=== PATIENT | female | born 1950 | race Caucasian/White ===

== ENCOUNTER 2016-04-29 08:15 | Outpatient (CLI) ==
[2016-02-12 14:25] VITALS: BMI 45.4
--- NOTE | 2016-04-29 09:16 | US ---
EXAM: Ultrasound abdomen, right upper quadrant HISTORY: Hepatitis C, cirrhosis of liver FINDINGS: The liver size was normal at 13 cm. The peripheral contour of the liver was somewhat serrated and t he caudate lobe prominent. Slight coarsened echotexture of the liver parenchyma. These findings ca n be consistent with the patient's history of cirrhosis. No intrahepatic biliary dilatation or foca l hepatic lesion identified. The portal vein is patent and hepatopedal. Gallbladder is absent. Common bile duct diameter is mildly dilated at 0.7 cm although likely within normal limits for the postop state. Correlate clinically. Visualized pancreas within normal limit s. No ascites identified. IMPRESSION: 1. Appearance of the liver can be consistent with cirrhosis. No focal hepatic lesions identified w ithin limits of sonography. Portal vein is patent. 2. Post cholecystectomy state with mild common bile duct dilatation. The dilatation is likely with in normal limits for the postop state. Correlate clinically. 3. No ascites identified.]
== END 2016-04-29 08:16 ==
LOC: RAD 08:15
PROVIDERS: ATTEND Nurse Practitioner
DX: K74.69 Other cirrhosis of liver (principal)

== ENCOUNTER 2017-03-09 15:05 | Outpatient (CLI) ==
[2016-02-12 14:25] VITALS: BMI 45.4
--- NOTE | 2017-03-09 15:48 | DI ---
EXAM: PA and lateral views of the chest HISTORY: Cough. COMPARISON: Chest x-ray 05/29/2014 and multiple priors including CT chest 11/11/2010 FINDINGS: The cardiomediastinal silhouette is normal. There is no pneumothorax or pleural effusion. There is no consolidation, nodule or mass. The osseous structures are stable. IMPRESSION: No acute cardiopulmonary process
== END 2017-03-09 15:06 | disposition home or self-care (01) ==
LOC: RAD 15:05
PROVIDERS: ATTEND Family Medicine
DX: R05 Cough (principal)

== ENCOUNTER 2017-12-29 12:18 | Outpatient (CLI) ==
[2016-02-12 14:25] VITALS: BMI 45.4
--- NOTE | 2017-12-29 14:41 | MRI ---
EXAM: MRI brain without IV contrast. DATE: 29 December 2017. HISTORY: Headaches. Pain behind the right eye. TECHNIQUE: Sagittal T1W, axial T2W, axial FLAIR, axial T1W, axial DWI, and coronal T2W GRE sequences of the brain were obtained using 1.2 Zainab magnet. No IV contrast. COMPARISON: CT paranasal sinuses 05/08/2014. FINDINGS: The CSF spaces overlying the superior vertex of the brain are mild to moderately prominent . Lateral ventricles, third ventricle, Sylvian fissures and many cerebral sulci are minimal/mildly e nlarged. Horizontal fissures and a few cerebellar sulci are somewhat large. No midline shift or her niation is apparent. No acute infarct, hemorrhage or neoplasm is identified. Minimal T2W/FLAIR hype rintensity is observed in the white matter abutting each lateral ventricle. A 5 mm T2W/FLAIR bright focus is seen in the right frontal frances radiata on axial image #18. A few other 2-3 mm, T2W/FLAIR bright foci are scattered within the subcortical white matter bilaterally. Proximally 12 separate 2 mm T2W/FLAIR bright foci are present in the fletcher. The hancock - white matter differentiation is normal. The 7th/8th cranial nerve complexes, cerebellopontine angles, and visible cervical spinal cord are n ormal. There is no cerebellar tonsillar ectopia. The pituitary gland is normal in size and signal. Corpus callosum is normal in size and configuration. Right vertebral artery is diminutive in size. Left vertebral artery is dominant Flow voids are present in the major intracranial arteries and in t he dural venous sinuses. No aneurysm, AVM or dural venous sinus thrombosis is apparent. No orbit ab normality is identified. The mastoid air cells are unremarkable. There is no acute sinusitis. Left middle turbinate large jason bullosa is present, with adjacent rightward nasoseptal deviation. No neck mass or lymphadenopathy is detected. Mild / moderate thickening of the inner table of the front al bone appears benign. No calvarial neoplasm or acute fracture is evident. IMPRESSIONS: 1. No acute infarct, hemorrhage, mass or hydrocephalus. 2. Minimal cerebral and mild brainstem leukomalacia - - likely due to small vessel disease. 3. Mild cerebral and minor cerebellar atrophy. 4. Moderate, benign hyperostosis frontalis interna.
--- NOTE | 2017-12-29 14:59 | MRI ---
EXAM: MRI lumbar spine without IV contrast. DATE: 29 December 2017. HISTORY: Acute low back pain. Right SI joint pain. TECHNIQUE: Sagittal and axial T1W and T2W sequences of the lumbar spine along with sagittal IR and c oronal T2W sequences were obtained using 1.2 Zainab magnet. No IV contrast. COMPARISON: PA/lateral chest 03/09/2017. CT abdomen/pelvis 17 March 2016. FINDINGS: There are five jwj-hby-ixtioid lumbar vertebra. Mild rotatory dextroscoliosis of the lowe r thoracic and lumbar spine is present, with the apex of curvature at L1-2. A 1.5 mm anterior sublux ation of L2 relative to L1 is noted. No other subluxation, acute lumbar fracture, osseous malignancy , or pars interarticularis defect is demonstrated. Lumbar vertebrae normal in height. Bone marrow s ignal is overall normal, although there are degenerative endplate changes at several levels. Chronic Schmorl's nodes are visible at T11, T12, L1, L2, L4, and L5. Small/moderate osteophytes are present at several lower thoracic and lumbar vertebra. Marked left-sided L1-2, marked L4-5, and mild L5-S1 disc space narrowing is detected. A vertical T2W/T1W dark band of adjacent T2W/IR hyperintensity and low T1W signal in the right S1 and S2 sacral ala is consistent with fracture. T2W/T1W bright signal in the left sacral ala suggest fatty infiltration. No acute sacroiliitis is detected. Conus medull elma terminates at T12-L1. Visible spinal cord is unremarkable. No retroperitoneal lymphadenopathy, paraspinal mass, or aortic aneurysm is detected. Atherosclerotic plaques are present within the aortic wall. Psoas muscles are normal. Minor/mild bilateral posteri or paraspinal muscle atrophy is seen inferiorly. Visible portions of the liver, adrenal glands, panc reas, and kidneys reveal no definitive abnormality. The spleen appears to measure greater than 15.8 cm in length, without distinct focal mass. Visible portion of the uterus reveals no distinct maligna ncy. No bowel obstruction or neoplasm is demonstrated. Segmental analysis: T11-12: Normal. T12-L1: Minor posterior disc bulge does not cause conus compression, central stenosis, or foraminal stenosis. L1-2: Minor anterolisthesis of L2, minor concentric disc bulge, left paracentral disc protrusion (2. 6 mm AP x 7 mm transverse), cause minor/mild right and moderate left foraminal stenoses. No central canal stenosis. L2-3: Small concentric disc bulge, minor facet arthropathy, and mild ligamentum flavum hypertrophy c ause triangulation of the canal and mild bilateral foraminal stenoses. L3-4: Moderate concentric disc bulge, minor facet arthropathy, and mild ligamentum flavum hypertroph y cause triangulation of the canal, mild right foraminal stenosis, and minor/mild left foraminal sten osis. L4-5: Broad midline to right foraminal spondylotic ridge at the L4 inferior endplate, minor posterio r to right foraminal disc bulge, and mild facet arthropathy cause triangulation of the canal, mild ri ght foraminal stenosis, and minor left foraminal narrowing. Right L4 nerve root appears to contact t he disc bulge near the lateral margin of the foramen. L5-S1: Small concentric disc bulge, small right posterolateral spondylotic ridge at the L5 inferior endplate, and minor facet disease cause mild central canal stenosis, mild right foraminal stenosis, a nd slight left foraminal encroachment. Each L5 nerve root touches disc bulge near the lateral aspect of the foramen. IMPRESSIONS: 1. Lumbar spine mild rotatory dextroscoliosis, mild facet arthropathy, minor L1-2 subluxation, and m ultilevel DDD. 2. Multilevel lumbar foraminal stenoses. Right L4 and both L5 nerve roots contact disc bulges/osteo phytes near the foramen, and may be sources for pain/radiculopathy. Unexpected findin. Nondisplaced stress vs insufficiency fracture in the right S1/S2 sacral ala. 4. Triangulation of canal at L2-3, L3-4, and L4-5. Mild central stenosis at L5-S1. 5. Minor bone marrow fatty infiltration. 6. Splenomegaly similar to February 2016. 7. Marked abdominal aortic atherosclerosis.
== END 2017-12-29 12:19 | disposition home or self-care (01) ==
LOC: RAD 12:18
PROVIDERS: ATTEND Family Medicine
DX: R51 Headache (principal); H57.11 Ocular pain, right eye; M54.5 Low back pain

== ENCOUNTER 2018-01-21 14:36 | Emergency (ER) ==
[2018-01-21 14:42] VITALS: BP 171/92; TEMP 98.5; BMI 39.1
--- NOTE | 2018-01-21 15:07 | ED.PDOC ---
General ED Provider: Dr. JESSICA DE JESUS Chief Complaint: Hip Pain/Injury Stated Complaint: pelvis, low back pain Time Seen by Physician: 15:06 (SEEN AT ALL WITH ekta in the room denied trauma) Mode of Arrival: Wheelchair Information Source: Patient Exam Limitations: No limitations Primary Care Provider: KRISTYN KNOX Nursing and Triage Documentation Reviewed and Agree: Yes Does patient meet sepsis criteria?: No System Inflammatory Response Syndrome: Not Applicable Sepsis Protocol: For patient's 13 years and over: Temp is 96.8 and below OR 101 and greater Pulse >90 BPM Resp >20/minute Acutely Altered Mental Status Are patient's symptoms suggestive of a new infection, such as: -Pneumonia -Skin, Soft Tissue -Endocarditis -UTI -Bone, Joint Infection -Implantable Device -Acute Abdominal Infection -Wound Infection -Meningitis -Blood Stream Catheter Infection -Unknown Musculoskeletal Complaint Exam - Hip/Pelvis Complaint/Exam Location of Pain: Reports: Right, Left, Groin, Pelvis (low back pain ) Mechanism of Injury: Reports: No known trauma Onset/Duration: chronic Symptoms Are: Still present Initial Severity: Mild Current Severity: Mild Location: Reports: Discrete Character: Reports: Aching Aggravating: Reports: Movement Alleviating: Reports: Rest, Position Associated Signs and Symptoms: Denies: Swelling, Redness, Bruising, Fever, Weakness, Dizziness, Syncope, Abdominal pain, Knee pain Related History: Reports: Similar episode Able to Bear Weight: Yes Related Surgical History: Reports: None Pelvis Palpation: Stable Tenderness: Present: Right, Left (hips) Range of Motion Limited In: Absent: Flexion, Extension, Abduction, Adduction, Internal rotation, External rotation Differential Diagnoses: Arthritis, Sprain, Strain, Other (lupus) Review of Systems - Review Of Systems Constitutional: Reports: No symptoms Eyes: Reports: No symptoms Ears, Nose, Mouth, Throat: Reports: No symptoms Respiratory: Reports: No symptoms Cardiac: Reports: No symptoms GI: Reports: No symptoms : Reports: No symptoms Musculoskeletal: Reports: Other (pelvis) Skin: Reports: No symptoms Neurological: Reports: No symptoms Endocrine: Reports: No symptoms Hematologic/Lymphatic: Reports: No symptoms All Other Systems: Reviewed and Negative Past Medical History - Past Medical History Previously Healthy: Yes Endocrine: Reports: DM 2 Cardiovascular: Reports: Hypertension Respiratory: Reports: None Hematological: Reports: None Gastrointestinal: Reports: None Genitourinary: Reports: None Neuro/Psych: Reports: None Musculoskeletal: Reports: None Cancer: Reports: None Last Menstrual Period: none - Surgical History General Surgical History: Reports: None - Family History Family History: Reports: None - Social History Smoking Status: Never smoker Hx Substance Use: No Alcohol Screening: None Physical Exam - Physical Exam Appearance: Well-appearing, No pain distress, Well-nourished Eyes: NORIS, EOMI, Conjunctiva clear ENT: Ears normal, Nose normal, Oropharynx normal Respiratory: Airway patent, Breath sounds clear, Breath sounds equal, Respirations nonlabored Cardiovascular: RRR, Pulses normal, No rub, No murmur GI/: Soft, Nontender, No masses, Bowel sounds normal, No Organomegaly Musculoskeletal: Normal strength, ROM intact, No edema, No calf tenderness Skin: Warm, Dry, Normal color Neurological: Sensation intact, Motor intact, Reflexes intact, Cranial nerves intact, Alert, Oriented Psychiatric: Affect appropriate, Mood appropriate Re-Evaluation - Re-Evaluation Time of Re-Evaluation: 15:30 (corbin present at all times we discussed the ct report and MRI REPORT THROUGH PMD A PHONE CALL TO PMD REVEALED THE PT HAS A SACRAL INSUFFICIENCY FX ) Status: Unchanged Vital Signs Stable: Yes Pain Level: 3/10 Appearance: NAD Lungs: Clear Skin: Warm and Dry Neuro: Alert and Oriented X3 CV: RRR - Re-Evaluation Time of Re-Evaluation: 16:18 Status: Unchanged Vital Signs Stable: Yes Appearance: NAD Skin: Warm and Dry Neuro: Alert and Oriented X3 CV: RRR (d/c instruction given) Physician Notification - Case Discussed Physician Notified: pmd Time of Notification: 16:18 (will follow as out pt ) Critical Care Note - Critical Care Note Total Time (mins): 0 Course - Course Orders, Labs, Meds: Orders Category Date Time Status CT PELVIS W/O CONTRAST Stat RADS 01/21/18 15:19 Completed Vital Signs: Temp Pulse Resp BP Pulse Ox 01/21/18 14:38 98.5 F 101 H 20 171/92 H 95 Departure - Departure Time of Disposition: 16:30 (d/c instruction given with nurse at bedside ) Disposition: HOME SELF-CARE Discharge Problem: Hip pain Instructions: Sacral Fracture (ED) Condition: Good Pt referred to PMD for follow-up: Yes IPMP verified?: No Additional Instructions: Please call your Family Physician as soon as possible to schedule a follow-up appointment. Prescriptions: Hydrocodone/Acetaminophen [Rumely 10-325 Tablet] 1 each PO Q8HR #10 tablet Allergies/Adverse Reactions: All[facility]ies [facility] Adverse Reaction (Verified 01/21/18 14:42) Home Medications: Ambulatory Orders Aspirin [Aspirin EC] 81 mg PO DAILYWM 08/28/15 Furosemide [Lasix] 40 mg PO DAILY PRN 08/28/15 Gabapentin [Neurontin] 100 mg PO BID #50 02/18/16 Escitalopram Oxalate [Lexapro] 10 mg PO DAILY 01/21/18 Hydrocodone Bit/Acetaminophen [Rumely 7.5-325] 1 tab PO PRN PRN 01/21/18 Hydrocodone/Acetaminophen [Rumely 10-325 Tablet] 1 each PO Q8HR #10 tablet Insulin Glargine,Hum.rec.anlog [Lantus] 60 unit SQ BEDTIME 01/21/18 Insulin Lispro [Humalog] See Protocol SQ BEDTIME 01/21/18 Losartan Potassium [Cozaar] 25 mg PO DAILY 01/21/18 Potassium Chloride [K-Dur] 10 meq PO ONCE PRN 01/21/18 Disposition Discussed With: Patient
--- NOTE | 2018-01-21 16:05 | CT ---
EXAM: CT pelvis HISTORY: Left groin pain. TECHNIQUE: CT pelvis without contrast. Multiplanar images provided. FINDINGS: Comparison may be made to 11/30/2013. The urinary bladder and uterus appear normal. The visualized bowel has normal gas pattern. There is no ascites or inflammatory infiltration of the abdominal fat. At least moderate atherosclerotic dis ease is suggested. There is a fatty umbilical hernia with a transverse neck of 1.5 cm which is stable since the previous exam. No other hernias are seen. Peripheral soft tissues appear normal. The bones appear deminera lized. There is a probable insufficiency fracture of the right sacral body. There is a severe degener ative disc and facet disease of the lower spine. No pneumoperitoneum IMPRESSION: 1. No clear etiology for left groin pain. There is an insufficiency fracture of the right sacral jaquelin dy. No other fractures are seen. Severe degenerative changes of the lower spine. 2. Stable small fatty umbilical hernia likely of no current clinical significance. 3. Atherosclerotic disease.
== END 2018-01-21 16:36 | disposition home or self-care (01) ==
LOC: ED 14:36
DX: S32.10XA Unspecified fracture of sacrum, initial encounter for closed fracture (principal)
CPT/HCPCS: 99282

== ENCOUNTER 2018-01-27 09:46 | Outpatient (CLI) ==
--- NOTE | 2018-01-27 15:20 | MRI ---
EXAM: MRI of the pelvis without contrast COMPARISON: CT pelvis 01/21/2018. MRI of the lumbar spine 12/29/2017. HISTORY: Left hip and groin pain with walking. Pubic bone pain. Insufficiency fracture of the righ t sacrum noted on recent CT. TECHNIQUE: Multiplanar noncontrast MR images of the pelvis/bilateral hips were acquired using a 1.2 Zainab magnet. The submitted images are moderately limited by patient motion artifact. FINDINGS: There is intervertebral disc space narrowing with facet hypertrophy throughout the lower l umbar spine as noted on previous MRI of the lumbar spine. There is marked marrow edema throughout th e right sacral ala with vertically oriented insufficiency fracture extending from S1-S3 at that level and with marrow edema. Fracture extending through the midline/vertebral body along the upper portio n of S2 and lower portion of S1. Small focus of linear inversion recovery hyperintense/T1 hypointens e signal within the upper left sacral ala which may represent sequela previous insufficiency fracture and/or intramedullary bone infarct. Marked marrow edema throughout the parasymphyseal portion of th e left pubic bone with nondisplaced/insufficiency fracture involving the medial aspect of the superio r pubic ramus and parasymphyseal pubic bone. Adjacent muscle strain/contusion. Mild to moderate degenerative changes of the hips bilaterally with minimal hip effusions. Mild degen erative spurring pubic symphysis. No evidence of acute osteomyelitis. There is hamstring tendinosis. More severe on the right. Partial-thickness tearing of the hamstring tendons which is more extensive on the right without a full-thickness tear or tendon retraction. Mi nimal left-sided greater trochanteric bursitis. No soft tissue mass identified within the pelvis. No pathologically enlarged intrapelvic lymph nodes . IMPRESSION: 1. Sacral insufficiency fracture which is more extensive on the right side. Insufficiency fracture of the left pubic bone as described. 2. Multifocal degenerative changes. 3. Tendinosis and partial tearing of the hamstring tendons bilaterally, more extensive on the right. No full-thickness tendon tear or tendon retraction. 4. Trace left-sided greater trochanteric bursitis.
== END 2018-01-27 09:47 | disposition home or self-care (01) ==
LOC: RAD 09:46
PROVIDERS: ATTEND Family Medicine
DX: M25.512 Pain in left shoulder (principal); M89.9 Disorder of bone, unspecified

== ENCOUNTER 2018-02-01 09:38 | Outpatient (CLI) ==
--- NOTE | 2018-02-01 10:53 | DEXA ---
EXAM: Bone densitometry. History: Postmenopausal. Findings: Evaluation of the lumbar spine reveals a total bone mineral density of 0.881 grams per centimeter squ ared with T-score of negative 2.5. Evaluation of the left hip reveals a total bone mineral density of 0.733 grams per centimeter squared with T-score of negative 2.2. Evaluation of the right hip reveals a total bone mineral density of 0.708 grams per centimeter square d with T-score of negative 2.4 Impression: 1. Osteoporosis of the lumbar spine. 2. Osteopenia of bilateral hips
== END 2018-02-01 09:39 | disposition home or self-care (01) ==
LOC: RAD 09:38
PROVIDERS: ATTEND Family Medicine
DX: Z78.0 Asymptomatic menopausal state (principal); R93.6 Abnormal findings on diagnostic imaging of limbs; S32.9XXD Fracture of unspecified parts of lumbosacral spine and pelvis, subsequent encounter for fracture with routine healing

== ENCOUNTER 2018-05-06 13:00 | Emergency (ER) ==
[2018-05-06 13:05] VITALS: BP 165/87; TEMP 97.7; BMI 40.4
--- NOTE | 2018-05-06 14:14 | DI ---
EXAM: Two views of the chest. History: Cough. Comparison: Chest radiograph 03/09/2017. Findings: Heart size is within normal limits. Mild infiltrates are seen within the bilateral mid debbie ngs. No appreciable pleural fluid and no pneumothorax. Central bronchial wall thickening. No acute osseous abnormalities. Atherosclerotic vascular calcifications. Impression: 1. Mild infiltrates within the bilateral mid lungs suspicious for pneumonia. 2. Central bronchial wall thickening
[2018-05-06] MEDS ORDERED: HUMULIN R SUBCUT STA (14:43)
[2018-05-06] MEDS ORDERED: ZESTRIL PO STA (14:47)
[2018-05-06] MEDS ORDERED: ROCEPHIN IM STA (15:25)
[2018-05-06] MEDS ORDERED: LIDOCAINE HCL 1% SDV IM STA (15:28)
--- NOTE | 2018-05-06 15:29 | ED.PDOC ---
General ED Provider: Dr. JESSICA DE JESUS Chief Complaint: Weakness Stated Complaint: generalized weakness Time Seen by Physician: 13:00 Mode of Arrival: Walk-In Information Source: Patient Exam Limitations: No limitations Primary Care Provider: KRISTYN KNOX Nursing and Triage Documentation Reviewed and Agree: Yes Does patient meet sepsis criteria?: No System Inflammatory Response Syndrome: Not Applicable Sepsis Protocol: For patient's 13 years and over: Temp is 96.8 and below OR 101 and greater Pulse >90 BPM Resp >20/minute Acutely Altered Mental Status Are patient's symptoms suggestive of a new infection, such as: -Pneumonia -Skin, Soft Tissue -Endocarditis -UTI -Bone, Joint Infection -Implantable Device -Acute Abdominal Infection -Wound Infection -Meningitis -Blood Stream Catheter Infection -Unknown Neurological Complaint Exam - Weakness Complaint/Exam Last Known Well: 1 week Onset: Gradual Duration: 1300 Symptoms Are: Still present Timing: Intermittent Episodes Lasting: Days Initial Severity: Moderate Current Severity: Moderate Character: Reports: Weak. Denies: Head spinning, Room spinning, Lightheaded, Dizzy Aggravating: Reports: None Alleviating: Reports: None Associated Signs and Symptoms: Reports: Nausea. Denies: Vomiting, Diaphoresis, Tinnitus, Chest pain, Short of air, Palpitations, Unsteady gait, GI blood loss, Visual changes, Decreased oral intake, Change in medication, Change in diet, OTC meds, Loss of balance Related History: Similar episode Cardiac Risk Factors: Reports: Hypertension, Diabetes CVA Risk Factors: Reports: Diabetes, Hypertension Related Surgical History: Reports: None JVD Present: No Carotid Bruit Present: No Rectal Heme Positive: No Nystagmus Present: No Gag Reflex Present: Yes Meningeal Signs Positive: No Focal Weakness: Present: None Focal Sensory Loss: Present: None Gait: Normal Babinski Sign: Negative Right, Negative Left Quality Indicators for Cardiac Chest Pain: EKG in 10min. Quality Indicators for AMI: EKG in 10min. Quality Indicator For Non-Traumatic Chest Pain/Syncope: EKG Performed Review of Systems - Review Of Systems Constitutional: Reports: Malaise, Weakness Eyes: Reports: No symptoms Ears, Nose, Mouth, Throat: Reports: No symptoms Respiratory: Reports: Cough Cardiac: Reports: No symptoms GI: Reports: No symptoms : Reports: No symptoms Musculoskeletal: Reports: No symptoms Skin: Reports: No symptoms Neurological: Reports: No symptoms Endocrine: Reports: No symptoms Hematologic/Lymphatic: Reports: No symptoms All Other Systems: Reviewed and Negative Past Medical History - Past Medical History Previously Healthy: Yes Endocrine: Reports: DM 2 Cardiovascular: Reports: Hypertension Respiratory: Reports: None Hematological: Reports: None Gastrointestinal: Reports: None Genitourinary: Reports: None Neuro/Psych: Reports: None Musculoskeletal: Reports: None Cancer: Reports: None Last Menstrual Period: none - Surgical History General Surgical History: Reports: None - Family History Family History: Reports: None - Social History Smoking Status: Never smoker Hx Substance Use: No Alcohol Screening: None Physical Exam - Physical Exam Appearance: Well-appearing, No pain distress, Well-nourished Eyes: NORIS, EOMI, Conjunctiva clear ENT: Ears normal, Nose normal, Oropharynx normal Respiratory: Airway patent, Breath sounds clear, Breath sounds equal, Respirations nonlabored Cardiovascular: RRR, Pulses normal, No rub, No murmur GI/: Soft, Nontender, No masses, Bowel sounds normal, No Organomegaly Musculoskeletal: Normal strength, ROM intact, No edema, No calf tenderness Skin: Warm, Dry, Normal color Neurological: Sensation intact, Motor intact, Reflexes intact, Cranial nerves intact, Alert, Oriented Psychiatric: Affect appropriate, Mood appropriate - NIH Stroke Scale 1a. Level of Consciousness: 0=Alert and keenly responsive 1b. Level of Consciousness Questions: 0=Answers correctly to two questions 1c. Level of Consciousness Commands: 0=Performs two tasks correctly 2. Best Gaze: 0=Normal 3. Visual: 0=No visual loss 4. Facial Palsy: 0=Normal 5a. Motor Left Arm: 0=No drift,arm holds 90 degrees for 10 sec., leg 30 degrees for 5 sec. 5b. Motor Right Arm: 0=No drift,arm holds 90 degrees for 10 sec., leg 30 degrees for 5 sec. 6a. Motor Left Le=No drift,arm holds 90 degrees for 10 sec., leg 30 degrees for 5 sec. 6b. Motor Right Le=No drift,arm holds 90 degrees for 10 sec., leg 30 degrees for 5 sec. 7. Limb Ataxia: 0=Absent 8. Sensory: 0=Normal 9. Best Language: 0=No aphasia 10. Dysarthria: 0=Normal 11. Extincion and Inattention: 0=Normal Stroke Scale Total: 0 Interpretation - Radiology Interpretation Radiology Interpretation By: Radiologist Radiology Results: Positive Exam Interpreted: CXR (filar possible infiltrate) - Ham Doctor Rate: Normal Rhythm: Sinus Re-Evaluation - Re-Evaluation Time of Re-Evaluation: 14:00 Status: Unchanged Vital Signs Stable: Yes Pain Level: 0 Appearance: NAD Lungs: Clear Skin: Warm and Dry Neuro: Alert and Oriented X3 CV: RRR - Re-Evaluation Time of Re-Evaluation: 15:30 Status: Unchanged Vital Signs Stable: Yes Pain Level: 0 Appearance: NAD Skin: Warm and Dry Neuro: Alert and Oriented X3 CV: RRR (uncontrolled diabetes and possible C.A.P DISCUSSED) Physician Notification - Case Discussed Physician Notified: PMD Time of Notification: 15:33 ( WILL SEE PT ON WEDNESDAY AGREES WITH CARE AND DISCUSSION OF D/C ) Critical Care Note - Critical Care Note Total Time (mins): 0 Course - Course Hematology/Chemistry: 05/06/18 13:25 05/06/18 13:25 Orders, Labs, Meds: Lab Review 05/06/18 05/06/18 05/06/18 13:25 13:25 13:25 WBC 6.03 RBC 5.21 Hgb 14.9 Hct 44.7 MCV 85.8 MCH 28.6 MCHC 33.3 RDW Coeff of [place] 13.4 Plt Count 159 Immature Gran % (Auto) 0.5 Neut % (Auto) 66.7 Lymph % (Auto) 21.2 [place] % (Auto) 8.1 Eos % (Auto) 2.5 Baso % (Auto) 1.0 Immature Gran # (Auto) 0.0 Neut # (Auto) 4.0 Lymph # (Auto) 1.3 [place] # (Auto) 0.5 Eos # (Auto) 0.2 Baso # (Auto) 0.1 Sodium 132.4 L Potassium 4.84 Chloride 95.4 L Carbon Dioxide 29.7 Anion Gap 12.14 BUN 11.1 Creatinine 0.69 Estimated GFR (MDRD) 84.00 BUN/Creatinine Ratio 16.08 Glucose 576.4 H* Calcium 8.25 L Total Bilirubin 0.64 AST 35.7 ALT 31.7 Alkaline Phosphatase 119.4 Total Creatine Kinase 33.7 Troponin I < 0.012 Total Protein 6.22 L Albumin 3.38 L Globulin 2.84 Albumin/Globulin Ratio 1.19 Urine Color Urine Clarity Urine pH Ur Specific Hanna Urine Protein Urine Glucose (UA) Urine Ketones Urine Blood Urine Nitrite Urine Bilirubin Urine Urobilinogen Ur Leukocyte Esterase Influ A Molecular Assay Negative by naat Influ B Molecular Assay Negative by naat 05/06/18 14:06 WBC RBC Hgb Hct MCV MCH MCHC RDW Coeff of [place] Plt Count Immature Gran % (Auto) Neut % (Auto) Lymph % (Auto) [place] % (Auto) Eos % (Auto) Baso % (Auto) Immature Gran # (Auto) Neut # (Auto) Lymph # (Auto) [place] # (Auto) Eos # (Auto) Baso # (Auto) Sodium Potassium Chloride Carbon Dioxide Anion Gap BUN Creatinine Estimated GFR (MDRD) BUN/Creatinine Ratio Glucose Calcium Total Bilirubin AST ALT Alkaline Phosphatase Total Creatine Kinase Troponin I Total Protein Albumin Globulin Albumin/Globulin Ratio Urine Color Yellow Urine Clarity Clear Urine pH 7.0 Ur Specific Hanna 1.010 Urine Protein Negative Urine Glucose (UA) 2+ Urine Ketones Negative Urine Blood Negative Urine Nitrite Negative Urine Bilirubin Negative Urine Urobilinogen 0.2 Ur Leukocyte Esterase Negative Influ A Molecular Assay Influ B Molecular Assay Orders Category Date Time Status EKG-(ED ONLY) Stat CARDIO 05/06/18 14:00 Completed CBC W/ AUTO DIFF Stat LAB 05/06/18 13:25 Completed COMPREHENSIVE METABOLIC PANEL Stat LAB 05/06/18 13:25 Completed CREATINE KINASE Stat LAB 05/06/18 13:25 Completed FLU A/B MOLECULAR Stat LAB 05/06/18 13:25 Completed MOLECULAR GROUP A STREP Stat LAB 05/06/18 13:25 Completed TROPONIN I Stat LAB 05/06/18 13:25 Completed URINALYSIS C & S IF INDICATED Stat LAB 05/06/18 14:06 Completed Insulin Regular, Human [Humulin R] MEDS 05/06/18 14:43 Discontinued 12 unit SUBCUT ONCE STA Lisinopril [Zestril] MEDS 05/06/18 14:47 Discontinued 20 mg PO ONCE STA CHEST, 2 VIEWS PA & LAT Stat RADS 05/06/18 13:17 Completed Medications Discontinued Medications Generic Name Dose Route Start Last Admin Trade Name Freq PRN Reason Stop Dose Admin Insulin Human Regular 12 unit 05/06/18 14:43 05/06/18 14:52 Humulin R SUBCUT 05/06/18 14:44 12 unit ONCE STA Administration Lisinopril 20 mg 05/06/18 14:47 05/06/18 15:03 Zestril PO 05/06/18 14:48 Not Given ONCE STA Vital Signs: Temp Pulse Resp BP Pulse Ox 05/06/18 13:00 97.7 F 97 H 20 165/87 H 95 Departure - Departure Time of Disposition: 16:00 Disposition: HOME SELF-CARE Discharge Problem: Uncontrolled diabetes mellitus Qualifiers: Diabetes mellitus type: drug or chemical induced Glycemic state: with hyperglycemia Qualified Code(s): 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 Pneumonia Qualifiers: Aspiration pneumonia type: unspecified Laterality: unspecified laterality Instructions: Pneumonitis (ED), Diabetes and Exercise (ED), Diabetes and Nutrition (ED), Type 2 Diabetes in the Older Adult (ED) Condition: Good Pt referred to PMD for follow-up: Yes IPMP verified?: No Prescriptions: Amoxicillin/Potassium Clav [Augmentin 875-125 mg Tab] 1 tab PO Q12HR 7 Days #14 tablet Allergies/Adverse Reactions: Allergies cefaclor [From Ceclor] Adverse Reaction (Verified 05/06/18 13:05) Home Medications: Ambulatory Orders Aspirin [Aspirin EC] 81 mg PO DAILYWM 08/28/15 Furosemide [Lasix] 40 mg PO DAILY PRN 08/28/15 Gabapentin [Neurontin] 100 mg PO BID #50 02/18/16 Escitalopram Oxalate [Lexapro] 10 mg PO DAILY 01/21/18 Hydrocodone Bit/Acetaminophen [Export 7.5-325] 1 tab PO PRN PRN 01/21/18 Insulin Glargine,Hum.rec.anlog [Lantus] 70 unit SQ BEDTIME 01/21/18 Insulin Lispro [Humalog] See Protocol SQ BEDTIME 01/21/18 Losartan Potassium [Cozaar] 25 mg PO DAILY 01/21/18 Potassium Chloride [K-Dur] 10 meq PO ONCE PRN 01/21/18 Amoxicillin/Potassium Clav [Augmentin 875-125 mg Tab] 1 tab PO Q12HR 7 Days #14 tablet 05/06/18
== END 2018-05-06 15:58 | disposition home or self-care (01) ==
LOC: ED 13:00
DX: E09.65 Drug or chemical induced diabetes mellitus with hyperglycemia (principal); J69.0 Pneumonitis due to inhalation of food and vomit; I10 Essential (primary) hypertension; R53.1 Weakness; Z79.899 Other long term (current) drug therapy; Z79.4 Long term (current) use of insulin
CPT/HCPCS: 36415; 80053; 81001; 82550; 82962; 84484; 85025; 87502; 87651; 93005; 93010; 96372; 99283